=== PATIENT | male | born 1980 | race Caucasian/White ===

== ENCOUNTER 2016-11-29 17:46 | Emergency (ER) | payer BC ==
[2016-11-29 18:18] VITALS: BP 136/84
[2016-11-29] MEDS ORDERED: Bacitracin Oint 1 GM U/D Packet TOP ONE (18:18)
[2016-11-29] MEDS ORDERED: Diphtheria,Pertussis(Acell),Tetanus Vaccine 0.5 ML SDV IM ONE (18:18)
--- NOTE | 2016-11-29 18:25 | EDM.PDOC ---
[id number] 4d CUT LT INDEX FINGER Time Seen by Provider: 11/29/16 18:10 Source of Information: Reports: Patient History Limitations: Reports: No Limitations - History of Present Illness INITIAL COMMENTS - FREE TEXT/NARRATIVE: 36-year-old male with a laceration to his left index finger. He struck the back of his DIP joint on a lawnmower blade. He has a 1.5 cm longitudinal laceration over the joint. The wound is very shallow but through into the subcutaneous. There is very minimal opening of the wound with flexing the finger. CMS is normal. Onset: Today Duration: Hour(s): (Within the last hour) Location: Reports: Upper Extremity, Left Associated Symptoms: Reports: No Other Symptoms - Related Data Allergies Allergy/AdvReac Type Severity Reaction Status Date / Time acetaminophen [From Percocet] Allergy Hives Verified 05/28/14 06:16 oxycodone HCl [From Percocet] Allergy Hives Verified 05/28/14 06:16 Home Meds: Home Meds FLUoxetine HCl [Prozac] 20 mg PO DAILY 05/17/14 [History] Ibuprofen [Advil] 400 mg PO Q4HR PRN 05/17/14 [History] Diclofenac Sodium [Diclofenac Sodium] 11/29/16 [History] Methocarbamol [Methocarbamol] 11/29/16 [History] Past Medical History Psychiatric History: Reports: Depression - Past Surgical History Musculoskeletal Surgical History: Reports: Shoulder Surgery Social & Family History - Tobacco Use Smoking Status *Q: Never Smoker Years of Tobacco use: 1 Used Tobacco, but Quit: Yes Month Tobacco Last Used: 04/2013 Second Hand Smoke Exposure: No - Alcohol Use Days Per Week of Alcohol Use: 0 - Recreational Drug Use Recreational Drug Use: No ED ROS GENERAL - Review of Systems Review Of Systems: See Below Constitutional: Denies: Fever Respiratory: Denies: Shortness of Breath GI/Abdominal: Denies: Nausea, Vomiting Neurological: Reports: No Symptoms ED EXAM, SKIN/RASH Exam: See Below Exam Limited By: No Limitations General Appearance: Alert, No Apparent Distress Respiratory/Chest: No Respiratory Distress Extremities: Other (Exam is otherwise limited to the left hand. The patient has a 1.5 cm longitudinal laceration over the dorsum of the index finger across the PIP joint. There is very little opening of the wound with flexion of the joint.) Neurological: Alert, Oriented Psychiatric: Normal Affect, Normal Mood Course - Vital Signs Last Recorded V/S: Last Vital Signs Temp 97.0 F 11/29/16 18:18 Pulse 78 11/29/16 18:18 Resp 14 11/29/16 18:18 BP 136/84 11/29/16 18:18 Pulse Ox - Orders/Labs/Meds Orders: Active Orders 24 hr Category Date Time Status Vaccines to be Administered [RC] PER UNIT ROUTINE Care 11/29/16 18:18 Active Meds: Medications Discontinued Medications Generic Name Dose Route Start Last Admin Trade Name Freq PRN Reason Stop Dose Admin Bacitracin 1 dose 11/29/16 18:18 11/29/16 18:24 Bacitracin Oint 1 Gm TOP 11/29/16 18:19 1 dose ONETIME ONE Administration Diphtheria/Tetanus/Acell Pertussis 0.5 ml 11/29/16 18:18 11/29/16 18:24 Adacel IM 11/29/16 18:19 0.5 ml .ONCE ONE Administration - Re-Assessments/Exams Free Text/Narrative Re-Assessment/Exam: 11/29/16 18:23 Discussed suturing versus just conservative treatment with Band-Aids and bacitracin, this wound should heal without repair. Patient was comfortable with the plan. Tdap booster was given Departure - Departure Time of Disposition: 18:38 Disposition: Home, Self-Care 01 Condition: Good Clinical Impression: Laceration of finger of left hand Qualifiers: Encounter type: initial encounter Finger: index finger Damage to nail status: without damage Foreign body presence: without foreign body Qualified Code(s): S61.211A - Laceration without foreign body of left index finger without damage to nail, initial encounter - Discharge Information Instructions: Laceration Care, Adult, [id number] Referrals: Colin Bush MD [Primary Care Provider] - Forms: ED Department Discharge Care Plan Goals: Keep the wound covered and clean while healing. Recheck if concerns of infection or not healing satisfactorily. - My Orders Last 24 Hours: My Active Orders 11/29/16 18:18 Vaccines to be Administered [RC] PER UNIT ROUTINE - Assessment/Plan Last 24 Hours: My Active Orders 11/29/16 18:18 Vaccines to be Administered [RC] PER UNIT ROUTINE
== END 2016-11-29 18:38 | disposition home or self-care (01) ==
LOC: JP.ED 17:46
DX: S61.211A Laceration without foreign body of left index finger without damage to nail, initial encounter (principal); Z23 Encounter for immunization; F32.9 Major depressive disorder, single episode, unspecified; Z88.8 Allergy status to other drugs, medicaments and biological substances; Z88.5 Allergy status to narcotic agent; Z98.890 Other specified postprocedural states; W31.89XA Contact with other specified machinery, initial encounter
CPT/HCPCS: 90471; 90715; 99283-25

== ENCOUNTER 2021-12-23 18:54 | Emergency (ER) | payer BC, OTHER ==
[2021-12-23] MEDS ORDERED: Ketorolac 30 MG/ML SDV IVPUSH ONE (19:37)
[2021-12-23 20:09] VITALS: BP 136/42; PULSE 60
[2021-12-23] MEDS ORDERED: methylPREDNISolone Sodium Succinate 125 MG/2 ML SDV IVPUSH ONE (20:22)
[2021-12-23] MEDS ORDERED: HYDROmorphone 1 MG/ML Syringe IVPUSH ONE (21:00)
== END 2021-12-23 21:38 | disposition home or self-care (01) ==
LOC: JP.ED 18:54
DX: M54.50 Low back pain, unspecified (principal); Z86.16 Personal history of COVID-19; Z79.899 Other long term (current) drug therapy; Z88.6 Allergy status to analgesic agent; Z88.5 Allergy status to narcotic agent; X50.1XXA Overexertion from prolonged static or awkward postures, initial encounter
CPT/HCPCS: 96374; 96375; 99283; J1170; J1885; J2930